=== PATIENT | male | born 1990 | race Caucasian/White ===

== ENCOUNTER 2021-11-21 11:46 | Emergency (ER) | payer BC, OTHER ==
[2021-11-21] MEDS: Ondansetron 4 MG Tab.DIS PO STA (12:05)
[2021-11-21] MEDS: Alum Hydroxide/Mag Hydroxide 15 ML, Lidocaine 2% 15 ML PO ONE ×4 (12:29)
[2021-11-21 15:21] VITALS: BP 196/88; PULSE 50
[2021-11-21] MEDS: Lidocaine 2% Viscous Solution 15 ML UD ONE (15:36)
[2021-11-21] MEDS: Aluminum Hydroxide/Magnesium Hydroxide Susp 30 ML Cup PO STA (15:36)
== END 2021-11-21 13:20 | disposition home or self-care (01) ==
LOC: FB.ED 11:46
DX: K29.70 Gastritis, unspecified, without bleeding (principal); K21.9 Gastro-esophageal reflux disease without esophagitis; Z79.82 Long term (current) use of aspirin
CPT/HCPCS: 99282; 99283; A9270-GY; Q0162